=== PATIENT | female | born 2000 | race Caucasian/White ===

== ENCOUNTER 2024-09-03 13:11 | Emergency (ER) | payer OTHER, SELFPAY ==
[2024-09-03 13:21] VITALS: BP 119/79
--- NOTE | 2024-09-03 13:23 | ED.GENMED ---
ED Provider Triage
<Jorje Landaverde PA-C - Last Filed: 09/03/24 13:25>
-
Patient seen by provider in Triage?: Seen in Triage
24-year-old female with history of pulmonary embolism, Crohn's disease on [place] and IgA nephropathy presents with intermittent chest discomfort over the past week. She had pulmonary embolism in the past following a prolonged hospital stay. Her
symptoms are very similar to her prior pulmonary embolism. She spoke with her oncologist, Dr. Gonzalez who sent her here for evaluation.
She is not at low risk for PE. Will hold off on D-dimer but will check labs EKG and troponin. Will order PE study of chest secondary to her history and risk and similar symptoms. She is not currently anticoagulated
History of Present Illness
<Jorje Landaverde PA-C - Last Filed: 09/03/24 13:25>
General
Chief Complaint: Chest Pain
Time Seen by Provider: 09/03/24 16:37
<Gracie Miranda DO - Last Filed: 09/03/24 19:14>
History of Present Illness
History of Present Illness:
24-year-old female with prior history of provoked PE presenting to the emergency department for intermittent chest pain. Patient reports symptoms for the past several days. She notes that symptoms feel similar to past episode of PE, which was
provoked by a prolonged hospital stay from Crohn's disease. She denies any recent immobility or prolonged travel. She is not currently on anticoagulation. Denies associated shortness of breath. Denies abdominal pain or GI symptoms. Denies lower
extremity edema or swelling. Denies fever or cough. Denies additional acute medical complaints.
Phy Exam
<Gracie Miranda DO - Last Filed: 09/03/24 19:14>
Physical Exam
Physical Exam:
General: Well-appearing, no clinical signs of dehydration, nontoxic and in no acute distress
HEENT: protecting airway
Neck: appears supple
CV: Normal heart rate, regular rhythm
Resp: No accessory muscle use, no increased work of breathing, lungs clear to auscultation bilaterally
Abd: No distention
Extremities: No deformities, no swelling, no erythema
Neuro: alert, no focal neurologic deficit
: deferred
Rectal: deferred
Psych: Normal affect
Skin: Intact
Scores
<Gracie Miranda DO - Last Filed: 09/03/24 19:14>
Heart Score for Chest Pain Patients
STEMI patient?: No
History: Slightly or Non-Suspicious
ECG: Normal
Age: </= 45 years
Risk Factors: No Risk Factors
Troponin: </= Normal Limit
Heart Score for Chest Pain Patients: 0
Heart Score Risk: 2.5% MACE over next 6 weeks
Course
<Jorje Landaverde PA-C - Last Filed: 09/03/24 13:25>
Orders/Labs/Results
Orders:
Orders
09/03/24 13:12
Electrocardiogram (*1) Urgent
Reason for Study: Chest Pain
EKG- Treatment ONCE
09/03/24 13:22
Test Result ONCE
09/03/24 13:23
CT Chest Pe Study Urgent
Comment:
Reason For Exam: chest pain, history of PE
09/03/24 13:30
Complete Blood Count/With Diff Urgent
Comprehensive Metabolic Panel Urgent
HCG, Serum Qualitative Screen Urgent
Troponin I Urgent
Abnormal Lab Results
09/03/24
13:30
RBC 3.74 L 10^6/uL
(4.20-5.40)
Hct 35.9 L %
(37.0-47.0)
MCH 33.2 H pg
(27.0-31.0)
Plt Count 434 H 10^3/uL
(130-400)
09/03/24 13:30
09/03/24 13:30
Vital Signs
Initial and Last Documented VS:
Initial Vital Signs
Temp Pulse Resp BP Pulse Ox
98.0 F 85 18 119/79 100
09/03/24 13:21 09/03/24 13:21 09/03/24 13:21 09/03/24 13:21 09/03/24 13:21
Last Documented Vital Signs
Temp Pulse Resp BP Pulse Ox
98.0 F 93 13 104/73 100
09/03/24 13:21 09/03/24 18:30 09/03/24 18:30 09/03/24 18:00 09/03/24 18:30
<Gracie Miranda, DO - Last Filed: 09/03/24 19:14>
Orders/Labs/Results
Orders:
Orders
09/03/24 13:12
Electrocardiogram (*1) Urgent
Reason for Study: Chest Pain
EKG- Treatment ONCE
09/03/24 13:22
Test Result ONCE
09/03/24 13:23
CT Chest Pe Study Urgent
Comment:
Reason For Exam: chest pain, history of PE
09/03/24 13:30
Complete Blood Count/With Diff Urgent
Comprehensive Metabolic Panel Urgent
HCG, Serum Qualitative Screen Urgent
Troponin I Urgent
Abnormal Lab Results
09/03/24
13:30
RBC 3.74 L 10^6/uL
(4.20-5.40)
Hct 35.9 L %
(37.0-47.0)
MCH 33.2 H pg
(27.0-31.0)
Plt Count 434 H 10^3/uL
(130-400)
09/03/24 13:30
09/03/24 13:30
Vital Signs
Initial and Last Documented VS:
Initial Vital Signs
Temp Pulse Resp BP Pulse Ox
98.0 F 85 18 119/79 100
09/03/24 13:21 09/03/24 13:21 09/03/24 13:21 09/03/24 13:21 09/03/24 13:21
Last Documented Vital Signs
Temp Pulse Resp BP Pulse Ox
98.0 F 93 13 104/73 100
09/03/24 13:21 09/03/24 18:30 09/03/24 18:30 09/03/24 18:00 09/03/24 18:30
<Gracie Miranda DO - Last Filed: 09/03/24 19:14>
MDM/Problems Addressed
MDM/Problems Addressed:
24-year-old female with prior history of PE presenting for chest pain. Vitals are normal.
On exam patient is well-appearing, no acute distress or discomfort. Benign cardiac and pulmonary exam. EKG obtained and patient's arrival, nonischemic. Patient without ACS risk factors, without concern for ACS at this time. Patient however
reports that her symptoms feel the same as when she was previously diagnosed with PE. Patient high risk. This reason, plan for laboratory analysis and CT imaging of the chest. Will continue to closely monitor
19:10 -CT without evidence of PE. Labs unremarkable. At this time feel stable for discharge, likely musculoskeletal quality to symptoms. Return precautions discussed and patient verbalized understanding
<Gracie Miranda DO - Last Filed: 09/03/24 19:14>
*EKG
Interpreted by ED Provider?: Yes
EKG Intrepretation Date: 09/03/24
EKG Intrepretation Time: 18:42
Interpretation: normal
Heart Rate: 78
Rate: normal
Rhythm: sinus
[place]: normal axis
Interval: normal interval
QRS Pattern: normal QRS
Ischemia: no ischemia
*Critical Care Note
Total Time (30-74mins, 75-104mins- exclusive of procedures): Not Applicable
ED Attending Note
<Jorje Landaverde PA-C - Last Filed: 09/03/24 13:25>
-
Portions of this chart may have been created with voice recognition software.� Occasional wrong word or��sound alike� substitutions may have occurred due to the inherent limitations of voice recognition software.
Discharge Plan
Departure
Patient with high blood pressure during this ER visit?: No
Condition: Good
Discharge Problem:
Chest pain
Instructions: Chest Pain That Is Not Caused by the Heart (DC)
Referrals:
JI MCWILLIAMS, DO [Family Provider] -
Activity Restrictions/Additional Instructions:
You were seen in the emergency department for chest pain
You were found to have normal laboratory analysis, EKG, CT of your chest, without evidence of a blood clot.
Please follow-up closely with your primary care physician.
Return to the emergency department for any worsening of your symptoms, or any development of chest pain, difficulty breathing, abdominal pain with persistent vomiting and inability to tolerate food or liquid by mouth (concern for dehydration),
weakness, headache or confusion, fever greater than 100.4, or any additional symptoms that are concerning to you.
Thank you for choosing [facility].
Interventions
Interventions:
*Risk Screen - Suicide Last Done: 09/03/24 13:21
*General Assessment Last Done: 09/03/24 13:21
*Neglect/Abuse Screening Last Done: 09/03/24 13:21
*ED COVID-19 Vaccine History Last Done: 09/03/24 13:21
ED- Cardiac Assessment Last Done: 09/03/24 16:45
Discharge Date and Time
Print Language: TAMAZIGHT
[2024-09-03 13:44] LABS: % Basophils 0.4 % (0-2); % Eosinophils 0.7 % (0-6); % Immature Granulocytes 0.4 % (0-0.5); % Lymphocytes 33.7 % (20.5-51.1); % Monocytes 7.4 % (1.7-9.3); % Neutrophils 57.4 % (42.2-75.2); Absolute Eosinophils 0.1 10^3/uL (0-0.7); Absolute Lymphocytes 2.7 10^3/uL (1.2-3.4); Absolute Monocytes 0.6 10^3/uL (0.1-0.6); Absolute Neutrophils 4.7 10^3/uL (1.4-6.5); Hematocrit 35.9 % (37.0-47.0); Hemoglobin 12.4 g/dL (12.0-16.0); Mean Corp Hgb Conc. 34.5 g/dL (33.0-37.0); Mean Corpuscular Hgb 33.2 pg (27.0-31.0); Mean Platelet Volume 9.6 fL (7.4-10.4); Nucleated Red Blood Cells % 0 %; Platelet Count 434 10^3/uL (130-400); Red Blood Cell Count 3.74 10^6/uL (4.20-5.40); White Blood Cell Count 8.1 10^3/uL (4.8-10.8)
[2024-09-03 14:02] LABS: HCG, Serum Qualitative Screen Negative
[2024-09-03 14:12] LABS: ALT (SGPT) 13 U/L (0-35); AST (SGOT) 23 U/L (14-36); Albumin 4.4 g/dl (3.5-5.0); Alkaline Phosphatase 50 U/L (38-126); Blood Urea Nitrogen 10 mg/dl (7-17); Calcium 9.7 mg/dl (8.4-10.2); Carbon Dioxide 25 mmol/L (22-30); Chloride 102 mmol/L (98-107); Glucose 91 mg/dl (70-99); Potassium 4.5 mmol/L (3.5-5.1); Sodium 137 mmol/L (135-145); Total Bilirubin 0.2 mg/dl (0.2-1.3); Total Protein 7.4 g/dl (6.3-8.2); eGFR > 60.00
[2024-09-03 14:17] LABS: Troponin I < 0.012 ng/ml
[2024-09-03 16:47] VITALS: BP 109/73
[2024-09-03 17:00] VITALS: BP 114/70
[2024-09-03 18:00] VITALS: BP 104/73
[2024-09-03 19:00] VITALS: BP 108/73
== END 2024-09-03 19:30 | disposition home or self-care (01) ==
LOC: EMR 13:11
PROVIDERS: Physician Assistant; EMERGENCY PHYSICIAN Student in an Organized Health Care Education/Training Program; FAMILY PHYSICIAN Family Medicine
DX: R07.89 Other chest pain (principal); Z86.711 Personal history of pulmonary embolism
CPT/HCPCS: 99285; 71275; 80053; 84484; 84703; 85025; 93005; Q9967

== ENCOUNTER 2025-07-31 17:18 | Emergency (ER) | payer OTHER, SELFPAY ==
[2025-07-31 17:27] VITALS: BP 133/76
[2025-07-31 18:22] VITALS: BMI 25.0
[2025-07-31 18:37] LABS: Hematocrit 36.1 % (37.0-47.0); Hemoglobin 12.3 g/dL (12.0-16.0); Mean Corp Hgb Conc. 34.1 g/dL (33.0-37.0); Mean Corpuscular Volume 93.5 fL (81.0-99.0); Nucleated Red Blood Cells % 0 %; Platelet Count 454 10^3/uL (130-400); Red Cell Dist. Width 13.3 % (11.5-14.5)
[2025-07-31 18:45] LABS: HCG, Serum Qualitative Screen Negative
[2025-07-31 18:48] LABS: ALT (SGPT) 51 U/L (0-35); AST (SGOT) 150 U/L (14-36); Albumin 4.1 g/dl (3.5-5.0); Alkaline Phosphatase 123 U/L (38-126); Blood Urea Nitrogen 16 mg/dl (7-17); Calcium 9.4 mg/dl (8.4-10.2); Carbon Dioxide 29 mmol/L (22-30); Chloride 102 mmol/L (98-107); Estimated Creatinine Clearance 113 ml/min; Glucose 126 mg/dl (70-99); Potassium 4.4 mmol/L (3.5-5.1); Sodium 137 mmol/L (135-145); Total Protein 7.6 g/dl (6.3-8.2); eGFR > 60.00
[2025-07-31 19:18] LABS: D-Dimer 0.49 ug/mlFEU (0.00-0.50)
--- NOTE | 2025-07-31 19:32 | ED.GENMED ---
History of Present Illness
General
Chief Complaint: Chest Problem
Source: patient
Exam Limitations: none
Time Seen by Provider: 07/31/25 18:16
Nursing documentation reviewed up to this point in time: agreed with
History of Present Illness
History of Present Illness:
Patient to ED wt complaint of sudden onset of severe mid back pain, difficulty breathing due to pain. She has as pst history of PE and states the symptoms were similar. States on arrival to ED she vomited and then pain resolved. SHe is now pain
free. Recent (6 days aogo) left shoulder surgery. No blood thinners. No leg pain or swelling.
Past History
Past History
ED Past Medical History: Other (PE 2014 after immoblization during hospitalization)
ED Past Surgical History: Orthopedic
Review of Systems
Review of Systems
Allergies reviewed?: Yes
All Other Systems: ROS reviewed and negative except as documented in HPI and ROS
Constitutional: Reports no symptoms
EENT: Reports no symptoms
Respiratory: Reports trouble breathing
Cardiac: Reports no symptoms
ABD/GI: Reports abdominal pain and vomiting
: Reports no symptoms
Musculoskeletal: Reports back pain (severe middle back pain)
Skin: Reports no symptoms
Neurological: Reports no symptoms
Psychiatric: Reports no symptoms
Phy Exam
General Physical Exam
General Presentation: well appearing and no apparent distress
General age: appears stated age
General Skin: warm and dry
General Habitus: normal
General Mental: alert
Cardiovascular Exam
Cardiovascular Exam: regular rate/rhythm and no edema
Pulmonary Exam
Pulmonary Exam: lungs clear, no respiratory distress and chest non tender
Gastrointestinal Exam
Gastrointestinal Exam: non tender, soft, no pulsatile mass and non distended
Musculoskeletal Exam
Musculoskeletal Exam: full ROM and neuro vasc intact
Skin Exam
Skin Exam: normal color, warm/dry and no rash
Psychiatric Exam
Psychiatric Exam: normal mood/affect
Course
Orders/Labs/Results
Orders:
Orders
07/31/25 17:20
EKG [Electrocardiogram (*1)] Urgent
Reason for Study: Chest Pain
EKG- Treatment ONCE
07/31/25 18:17
Test Result ONCE
07/31/25 18:28
Complete Blood Count/With Diff Urgent
Comprehensive Metabolic Panel Urgent
D-Dimer Urgent
HCG, Serum Qualitative Screen Urgent
Abnormal Lab Results
07/31/25
18:28
WBC 13.5 H 10^3/uL
(4.8-10.8)
RBC 3.86 L 10^6/uL
(4.20-5.40)
Hct 36.1 L %
(37.0-47.0)
MCH 31.9 H pg
(27.0-31.0)
Plt Count 454 H 10^3/uL
(130-400)
Abs Immat Gran (auto) 0.1 H 10^3/uL
(0-0.05)
Absolute Neuts (auto) 10.5 H 10^3/uL
(1.4-6.5)
Absolute Monos (auto) 1.2 H 10^3/uL
(0.1-0.6)
Neutrophils % 77.7 H %
(42.2-75.2)
Lymphocytes % 12.3 L %
(20.5-51.1)
Glucose 126 H mg/dl
(70-99)
AST 150 H U/L
(14-36)
ALT 51 H U/L
(0-35)
07/31/25 18:28
07/31/25 18:28
Vital Signs
Initial and Last Documented VS:
Initial Vital Signs
Temp Pulse Resp BP Pulse Ox
98.1 F 66 16 133/76 98
07/31/25 17:27 07/31/25 17:27 07/31/25 17:27 07/31/25 17:27 07/31/25 17:27
Last Documented Vital Signs
Temp Pulse Resp BP Pulse Ox
98.1 F 85 14 133/76 99
07/31/25 17:27 07/31/25 18:22 07/31/25 18:22 07/31/25 17:27 07/31/25 18:22
*Pulse Oximetry
SaO2: 99
Oxygen Mode of Delivery: Room air
Patient hypoxic: no
*Critical Care Note
Total Time (30-74mins, 75-104mins- exclusive of procedures): Not Applicable
Update Note
Update Note:
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 COncerned that she developd PE, she is 6 days post op left shoulder surgery. In ED she vomited x 1, pain resolved. SHe has remained symptom free. No pain on
exam. LCTA. NO leg pain or swelling. Pulse ox 99% RA. DDimer neg. Doubtful for PE. Similar presnetation in ED [address] chest neg for PE at that time. WIll hold of on CT at this time as symtpoms have resolved, DDimer is neg. Will
discharge home and she will continue to monitor for symptoms. Agrees to return to ED if symptoms return
ED Attending Note
-
Portions of this chart may have been created with voice recognition software.� Occasional wrong word or��sound alike� substitutions may have occurred due to the inherent limitations of voice recognition software.
Discharge Plan
Departure
Patient Disposition: Home (Routine Discharge)
Date of Disposition: 07/31/25
Time of Disposition: 19:33
Patient with high blood pressure during this ER visit?: No
Condition: Good
Covid-19: Not Applicable
Discharge Problem:
Back pain
Instructions: Upper Back Pain (DC)
Referrals:
JI MCWILLIAMS, [Family Provider, Family Practice] - Tomorrow
Activity Restrictions/Additional Instructions:
REturn to the emergency department immediately for return of your symptoms, any further concerns.
Interventions
Interventions:
*Risk Screen - Suicide Last Done: 07/31/25 18:51
*General Assessment Last Done: 07/31/25 18:22
*Neglect/Abuse Screening Last Done: 07/31/25 18:51
*ED- Fall Risk Assessment Last Done: 07/31/25 18:22
*ED COVID-19 Vaccine History Last Done: 07/31/25 18:22
ED- Cardiac Assessment Last Done: 07/31/25 18:20
ED-Musculoskeletal Assessment Last Done: 07/31/25 18:20
ED- Pulmonary Assessment Last Done: 07/31/25 18:20
Discharge Date and Time
Print Language: GREENLANDIC
== END 2025-07-31 19:50 | disposition home or self-care (01) ==
LOC: EMR 17:18
PROVIDERS: Nurse Practitioner; EMERGENCY PHYSICIAN Emergency Medicine; FAMILY PHYSICIAN Family Medicine
DX: M54.9 Dorsalgia, unspecified (principal); R11.2 Nausea with vomiting, unspecified; Z86.711 Personal history of pulmonary embolism
CPT/HCPCS: 99283; 80053; 84703; 85025; 85379; 93005